=== PATIENT | male | born 1950 | race Caucasian/White ===

== ENCOUNTER → 2016-05-18 | Outpatient (CLI) | payer OTHER ==
--- NOTE | 2016-05-18 18:01 | MR ---
MRI of the Lumbar Spine (Without Contrast) 1655 hours Clinical Indications: M48.06, low back pain, thigh spasms. Technique: Sagittal and axial T1 and T2 and sagittal STIR MR sequences of the lumbar spine without co ntrast. Axial imaging from T11-S1. Findings: Lumbar vertebral bodies are of normal height without compression fractures. Conus medulla ris appears normal and ends at L1. Mild levoscoliosis. T11-T12: Severe degenerative disk disease and circumferential osteophytes without central canal steno sis or neural foraminal stenosis. T12-L1: Mild degenerative disk disease and 2 mm central disk protrusion without central canal or neur al foraminal stenosis. L1-L2: Severe degenerative disk disease with degenerative grade 1 retrolisthesis 5 mm, circumferentia l disk bulge and osteophytes more prominent toward the left posterolaterally, resulting in mild centr al canal stenosis and mild bilateral neural foraminal stenosis. L2-L3: Mild degenerative disk disease, mild disk bulge and mild bilateral facet arthropathy resulting in mild central canal stenosis without neural foraminal stenosis. L3-L4: Moderate degenerative disk disease and central 5 mm disk herniation with moderate bilateral fa cet arthropathy resulting in mild to moderate central canal stenosis and mild to moderate bilateral n eural foraminal stenosis, left worse than right. L4-L5: Moderate degenerative disk disease with central 4 mm disk herniation, protrusion and moderate bilateral facet arthropathy resulting in mild central canal stenosis and mild to moderate bilateral n eural foraminal stenosis, left worse than right. L5-S1: Mild degenerative disk disease and moderate bilateral facet arthropathy with minimal disk bulg e asymmetrically towards the right resulting in mild right neural foraminal stenosis without central canal stenosis. Probable multiple bilateral renal cysts partially visualized. Impression: 1. L1-L2: Severe degenerative disk disease with degenerative grade 1 retrolisthesis, disk bulge, oste ophytes, resulting in mild central canal stenosis and mild bilateral neural foraminal stenosis. 2. L3-L4 and L4-L5 moderate degenerative disk disease with disk herniations and bilateral facet arthr opathy resulting in mild to moderate central canal stenosis at both levels and mild to moderate bilat eral neural foraminal stenosis, left worse than right. 3. Please see above findings at specific disk levels.
== END ==
LOC: FIMAGING 16:07
PROVIDERS: ATTEND Orthopaedic Surgery
DX: M51.34 Other intervertebral disc degeneration, thoracic region (principal); M51.36 Other intervertebral disc degeneration, lumbar region; M43.16 Spondylolisthesis, lumbar region; M51.26 Other intervertebral disc displacement, lumbar region; M48.06 Spinal stenosis, lumbar region; M99.73 Connective tissue and disc stenosis of intervertebral foramina of lumbar region

== ENCOUNTER 2018-09-18 08:04 | Emergency (ER) | payer MEDICARE, OTHER ==
[2018-09-18 08:12] VITALS: BP 114/79
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
== END 2018-09-18 08:42 | disposition home or self-care (01) ==
DX: M54.16 Radiculopathy, lumbar region (principal); E78.5 Hyperlipidemia, unspecified